=== PATIENT | male | born 1990 | race Two or more races ===

== ENCOUNTER 2017-06-19 14:27 | Inpatient (IN) | payer SELFPAY ==
[2017-06-19] MEDS ORDERED: HYDROmorphONE/DILAUDID 2 MG/ML INJ IVP ONE (14:49)
[2017-06-19] MEDS ORDERED: NS 1,000 ML IV ONE (15:00)
[2017-06-19 15:12] LABS: PLATELET COUNT 224 10^3/uL (150-400)
--- NOTE | 2017-06-19 16:23 | ASMTCMCOM ---
CM Note CM Note Notes: Met w/ pt for SBIRT trigger. Pt admitted s/p a fall skiing today w/ left lower extremity pain. Pt states he does not drink alcohol. Pt states he occasionally uses recreational marijuana. He regularly uses prescription medications not prescribed to him - "Oxycodone and Xanax bars." The pt typically takes three to four 30 mg Oxycodone daily with two Xanax bars daily. 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 Last dose of Suboxone was at 0700 today, he states he took 2 mg. Pt offered resources for drug use. Pt refused stating he doesn't need help. Pt requesting additional pain medications for his leg. Update provided to JOSEE Taylor. CM available for any further issues or concerns. Date Signed: 06/19/2017 04:22 PM Electronically Signed By:Bonnie Duncan RN
[2017-06-19] MEDS ORDERED: MIDAZOLAM 2 MG/2 ML VIAL IVP ONE (16:39)
--- NOTE | 2017-06-19 16:41 | PDGENHP ---
<Pam Harmon - Last Filed: 06/19/17 16:38> History and Physical - Chief Complaint Left leg pain - History of Present Illness 26y/o RHD M presents to the ED c/o LLE pain x few hours. Pt states he was skiing today at [place] today, when he was trying to stop, when he fell and rolled. Pt states his ski got caught and his left leg "bent". Pt was brought down by ski lift mechanic and presented to [facility] ED. Pt states he is in significant pain. Pt has had difficulty with pain control since arrival due to recreational use of oxycodone IR and suboxone. NPO food since 8am, small amounts of water until approximately 2pm. Pt denies any numbness or tingling. History Information - Allergies/Home Medication List Allergies/Adverse Reactions: No Known Allergies Allergy (Unverified 06/19/17 14:34) Home Medications: Suboxone 12 mg-3 mg Sl Film 06/19/17 [Last Taken Unknown] I have personally reviewed and updated: family history, medical history, social history, surgical history Past Medical History: Healthy - Surgical History Reports: no pertinent surgical hx - Family History Negative for: asthma, diabetes type I, diabetes type II, lung disease, vascular disease, CAD, hypertension, stroke - Social History Smoking Status: Current every day smoker Tobacco Use: Cigarettes Alcohol Use: None Drug Use: Marijuana, Other (Oxycodone, Xanax and Suboxone recreationally) Additional social history: Pt is employed and does upholstery Review of Systems Review of Systems: ROS: 10pt was reviewed & negative except for what was stated in HPI & below Physical Exam Physical Exam: Temp Pulse Resp BP Pulse Ox 37 C 67 16 124/80 H 94 06/19/17 14:34 06/19/17 15:42 06/19/17 15:42 06/19/17 15:42 06/19/17 15:42 Constitutional: no apparent distress, appears nourished Eyes: PERRL Ears, Nose, Mouth, Throat: moist mucous membranes, hearing normal, no oral mucosal ulcers Cardiovascular: regular rate and rhythym Peripheral Pulses: 2+: dorsalis-pedis (R), dorsalis-pedis (L) Respiratory: no respiratory distress, clear to auscultation Gastrointestinal: soft, non-tender abdomen Skin: warm, normal color, No abrasion Musculoskeletal: full muscle strength, joint effusion (L knee), joint tenderness (L knee TTP throughout), other (FROM RUE, LUE, able to move toes and ankle well BLEs. Compartments soft.) Neurologic: AAOx3, sensation intact bilaterally, No numbness Psychiatric: interacting appropriately Lymph, Heme, Immunologic: no cervical LAD Lab Data & Imaging Review 06/19/17 15:00 06/19/17 15:00 WBC 22.70 10^3/uL (3.80-9.50) H 06/19/17 15:00 RBC 4.47 10^6/uL (4.40-6.38) 06/19/17 15:00 Hgb 14.4 g/dL (13.7-17.5) 06/19/17 15:00 Hct 40.8 % (40.0-51.0) 06/19/17 15:00 MCV 91.3 fL (81.5-99.8) 06/19/17 15:00 MCH 32.2 pg (27.9-34.1) 06/19/17 15:00 MCHC 35.3 g/dL (32.4-36.7) 06/19/17 15:00 RDW 14.3 % (11.5-15.2) 06/19/17 15:00 Plt Count 224 10^3/uL (150-400) 06/19/17 15:00 MPV 10.9 fL (8.7-11.7) 06/19/17 15:00 Neut % (Auto) 84.2 % (39.3-74.2) H 06/19/17 15:00 Lymph % (Auto) 8.1 % (15.0-45.0) L 06/19/17 15:00 [place] % (Auto) 6.6 % (4.5-13.0) 06/19/17 15:00 Eos % (Auto) 0.2 % (0.6-7.6) L 06/19/17 15:00 Baso % (Auto) 0.3 % (0.3-1.7) 06/19/17 15:00 Nucleat RBC Rel Count 0.0 % (0.0-0.2) 06/19/17 15:00 Absolute Neuts (auto) 19.13 10^3/uL (1.70-6.50) H 06/19/17 15:00 Absolute Lymphs (auto) 1.83 10^3/uL (1.00-3.00) 06/19/17 15:00 Absolute Monos (auto) 1.49 10^3/uL (0.30-0.80) H 06/19/17 15:00 Absolute Eos (auto) 0.05 10^3/uL (0.03-0.40) 06/19/17 15:00 Absolute Basos (auto) 0.07 10^3/uL (0.02-0.10) 06/19/17 15:00 Absolute Nucleated RBC 0.00 10^3/uL (0-0.01) 06/19/17 15:00 Immature Gran % 0.6 % (0.0-1.1) 06/19/17 15:00 Immature Gran # 0.13 10^3/uL (0.00-0.10) H 06/19/17 15:00 Sodium 146 mEq/L (135-145) H 06/19/17 15:00 Potassium 3.4 mEq/L (3.5-5.2) L 06/19/17 15:00 Chloride 115 mEq/L (97-110) H 06/19/17 15:00 Carbon Dioxide 19 mEq/l (22-31) L 06/19/17 15:00 Anion Gap 12 mEq/L (8-16) 06/19/17 15:00 BUN 14 mg/dL (7-23) 06/19/17 15:00 Creatinine 0.6 mg/dL (0.7-1.3) L 06/19/17 15:00 Estimated GFR > 60 06/19/17 15:00 Glucose 75 mg/dL (70-100) 06/19/17 15:00 Calcium 8.7 mg/dL (8.5-10.4) 06/19/17 15:00 Imaging Review: MRI: intra-articular, displace and comminuted fracture proximal L tibia Assessment & Plan Assessment: Intra-articular proximal fibula with comminution and displacement Plan: Discussed with patient risks, benefits and alternatives for surgery today. Written consent was obtained. - Keep NPO - Plan for ex-fix placement LLE today with Dr. Chapman - NWB LUE - Strict elevation, ice post-operatively - SCDs/TEDs on the non-operative leg - VTE chemoprophylaxis post-operative - Please call with any questions or concerns <Michael Chapman - Last Filed: 06/19/17 17:47> History and Physical - History of Present Illness Review of Systems Review of Systems: Physical Exam Physical Exam: Physical Exam Skin intact. +ecchy and edema, no calor or erythema LLE. Comp's soft, no pain with passive stretch or active toe/foot ROM. WWP distally with brisk CR, palp DP. DNVI BLEs. Secondary survey negative for other MSK injury. ABIs: 1.09 LLE. Temp Pulse Resp BP Pulse Ox 37 C 67 16 124/80 H 94 06/19/17 16:27 06/19/17 16:46 06/19/17 16:46 06/19/17 16:46 06/19/17 16:46 Lab Data & Imaging Review 06/19/17 15:00 06/19/17 15:00 WBC 22.70 10^3/uL (3.80-9.50) H 06/19/17 15:00 RBC 4.47 10^6/uL (4.40-6.38) 06/19/17 15:00 Hgb 14.4 g/dL (13.7-17.5) 06/19/17 15:00 Hct 40.8 % (40.0-51.0) 06/19/17 15:00 MCV 91.3 fL (81.5-99.8) 06/19/17 15:00 MCH 32.2 pg (27.9-34.1) 06/19/17 15:00 MCHC 35.3 g/dL (32.4-36.7) 06/19/17 15:00 RDW 14.3 % (11.5-15.2) 06/19/17 15:00 Plt Count 224 10^3/uL (150-400) 06/19/17 15:00 MPV 10.9 fL (8.7-11.7) 06/19/17 15:00 Neut % (Auto) 84.2 % (39.3-74.2) H 06/19/17 15:00 Lymph % (Auto) 8.1 % (15.0-45.0) L 06/19/17 15:00 [place] % (Auto) 6.6 % (4.5-13.0) 06/19/17 15:00 Eos % (Auto) 0.2 % (0.6-7.6) L 06/19/17 15:00 Baso % (Auto) 0.3 % (0.3-1.7) 06/19/17 15:00 Nucleat RBC Rel Count 0.0 % (0.0-0.2) 06/19/17 15:00 Absolute Neuts (auto) 19.13 10^3/uL (1.70-6.50) H 06/19/17 15:00 Absolute Lymphs (auto) 1.83 10^3/uL (1.00-3.00) 06/19/17 15:00 Absolute Monos (auto) 1.49 10^3/uL (0.30-0.80) H 06/19/17 15:00 Absolute Eos (auto) 0.05 10^3/uL (0.03-0.40) 06/19/17 15:00 Absolute Basos (auto) 0.07 10^3/uL (0.02-0.10) 06/19/17 15:00 Absolute Nucleated RBC 0.00 10^3/uL (0-0.01) 06/19/17 15:00 Immature Gran % 0.6 % (0.0-1.1) 06/19/17 15:00 Immature Gran # 0.13 10^3/uL (0.00-0.10) H 06/19/17 15:00 Sodium 146 mEq/L (135-145) H 06/19/17 15:00 Potassium 3.4 mEq/L (3.5-5.2) L 06/19/17 15:00 Chloride 115 mEq/L (97-110) H 06/19/17 15:00 Carbon Dioxide 19 mEq/l (22-31) L 06/19/17 15:00 Anion Gap 12 mEq/L (8-16) 06/19/17 15:00 BUN 14 mg/dL (7-23) 06/19/17 15:00 Creatinine 0.6 mg/dL (0.7-1.3) L 06/19/17 15:00 Estimated GFR > 60 06/19/17 15:00 Glucose 75 mg/dL (70-100) 06/19/17 15:00 Calcium 8.7 mg/dL (8.5-10.4) 06/19/17 15:00 Assessment & Plan Assessment: Closed, displaced and highly comminuted L intra-articular tibial plateau fracture, c/w high energy mechanism. Currently no signs of compartment syndrome , NV deficit (nml exam and ABIGAIL of 1.09), or other significant orthopaedic injury. Plan: Signed and witnessed informed consent obtained and in chart. All questions answered and we will proceed to the OR [facility] for sp ex fix L knee. Pt will need pain medicine consult immediately post-op due to extremely high recreational narcotic/benzo usage (oxycodone 120mg/day and xanax 6mg/day) + suboxone use.
--- NOTE | 2017-06-19 16:46 | PDANEPAE ---
ANE History of Present Illness Ex-Fix L Knee for fracture ANE Past Medical History - Pulmonary History Hx Oxygen in Use at Home: No - Endocrine History Hx Diabetes: No - Neurological & Psychiatric Hx Neurological / Psychiatric History Comment: ocycodone use. etoh use. now on suboxone from the street ANE Review of Systems Review of Systems: - Exercise capacity Exercise capacity: >=4 METS ANE Patient History - Allergies Allergies/Adverse Reactions: No Known Allergies Allergy (Unverified 06/19/17 14:34) - Home Medications Home Medications: Suboxone 12 mg-3 mg Sl Film 06/19/17 [Last Taken Unknown] - NPO status NPO Since - Liquids (Date): 06/19/17 NPO Since - Liquids (Time): 12:00 NPO Since - Solids (Date): 06/19/17 NPO Since - Solids (Time): 09:00 - Anes Hx Anes Hx: no prior problems - Smoking Hx Smoking Status: Current every day smoker Marijuana use: Yes - Alcohol Use Alcohol Use: Occasionally - Family Anes Hx Family Anes Hx: none ANE Labs/Vital Signs - Labs Result Diagrams: 06/19/17 15:00 06/19/17 15:00 - Vital Signs Blood Pressure: 124/80 Heart Rate: 67 Respiratory Rate: 16 O2 Sat (%): 94 Height: 177.8 cm Weight: 70.307 kg ANE Physical Exam - Airway Mallampati Score: Class 1 Mouth exam: normal dental/mouth exam - Pulmonary Pulmonary: no respiratory distress - Cardiovascular Cardiovascular: regular rate and rhythym - ASA Status ASA Status: II ANE Anesthesia Plan Anesthesia Plan: GA w LMA Regional Anesthesia: continuous NB, adductor canal FNB (+/- will discuss with Dr. Chapman)
[2017-06-19] MEDS ORDERED: POLYMYXIN B SULFATE 500,000 UNIT/10 ML SYR IRR ONE (16:49)
[2017-06-19] MEDS ORDERED: BUPIVACAINE 0.5% 10 ML SDV ONE ×2 (16:49→19:30)
[2017-06-19] MEDS ORDERED: BACITRACIN 50,000 UNITS/10 ML SYR IRR ONE (16:50)
[2017-06-19] MEDS ORDERED: ceFAZolin 2 GM/SWFI 2 GM/20 ML SYR IVP ONE (16:51)
[2017-06-19] MEDS ORDERED: MIDAZOLAM 2 MG/2 ML VIAL ONE (17:17)
[2017-06-19] MEDS ORDERED: fentaNYL 250 MCG/5 ML INJ ONE (17:24)
[2017-06-19] MEDS ORDERED: KETAMINE 200 MG/20 ML VIAL ONE (17:25)
[2017-06-19] MEDS ORDERED: PROPOFOL/EMULSION 500 MG/50 ML BOTTLE IV ONE ×3 (17:25→19:36)
[2017-06-19] MEDS ORDERED: ROCURONIUM 50 MG/5 ML VIAL ONE (17:26)
[2017-06-19] MEDS ORDERED: LIDOCAINE HCL 160 MG/4 ML LTA KIT TP ONE (17:32)
[2017-06-19] MEDS ORDERED: PHENYLEPHRINE HCL 100 MCG/ML SYR ONE ×2 (17:47→18:56)
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
[2017-06-19] MEDS ORDERED: DEXAMETHASONE 4 MG/ML VIAL ONE ×2 (18:21)
[2017-06-19] MEDS ORDERED: NEOSTIGMINE METHYLSULFATE 3 MG/3 ML SYR ONE (18:37)
[2017-06-19] MEDS ORDERED: GLYCOPYRROLATE 0.2 MG/1 ML VIAL ONE ×2 (18:37)
[2017-06-19] MEDS ORDERED: IOPAMIDOL (ISOVUE 370) 100 ML BTL IV ONE ×2 (18:59→19:02)
--- NOTE | 2017-06-19 19:21 | POSTOPPROG ---
Post Op Note Date of Operation: 06/19/17 Surgeon: Michael Chapman [employer] Application Developer: None Anesthesiologist: Judson Anesthesia: GET(General Endotracheal) Pre-op Diagnosis: Closed, comminuted, intra-articular left tibial plateau fracture Post-op Diagnosis: Same with possible popliteal vascular injury Indication: Fracture Procedure: Application of left knee spanning ex fix with tibial plateau closed redxn Findings: See op report Inf/Abcess present in the surg proc area at time of surgery?: No EBL: Minimal Complications: None
[2017-06-19] MEDS ORDERED: PHARMACY PAIN CONSULT 1 EA MISC SCH (19:30)
[2017-06-19] MEDS ORDERED: THROMBIN (BOVINE) 20,000 UNIT VIAL TP ONE (19:30)
[2017-06-19] MEDS ORDERED: PROTAMINE SULFATE 50 MG/5 ML VIAL IVP ONE (19:30)
[2017-06-19] MEDS ORDERED: THROMBIN (BOVINE) 20,000 UNIT SPRAY TP ONE (19:30)
[2017-06-19] MEDS ORDERED: HYDROmorphONE/DILAUDID 6 MG/30 ML PCA IV PRN (20:40)
[2017-06-19] MEDS ORDERED: NALOXONE HCL 0.4 MG/ML INJ IVP PRN (20:40)
[2017-06-19] MEDS ORDERED: METOCLOPRAMIDE 10 MG/2 ML VIAL IVP PRN (20:42)
[2017-06-19] MEDS ORDERED: MAGNESIUM HYDROXIDE 30 ML UDCUP PO PRN (20:42)
[2017-06-19] MEDS ORDERED: CYCLOBENZAPRINE 10 MG TAB PO PRN (20:42)
[2017-06-19] MEDS ORDERED: POLYETHYLENE GLYCOL 3350 17 GM PKT PO PRN (20:42)
[2017-06-19] MEDS ORDERED: BISACODYL 10 MG SUPP PR PRN (20:42)
[2017-06-19] MEDS ORDERED: ONDANSETRON DISINTEGRATING 4 MG TAB PO PRN (20:42)
[2017-06-19] MEDS ORDERED: PROMETHAZINE HCL 25 MG SUPPR PR PRN (20:42)
[2017-06-19] MEDS ORDERED: ONDANSETRON 4 MG/2 ML VIAL IVP PRN (20:42)
[2017-06-19] MEDS ORDERED: diphenhydrAMINE 25 MG CAP PO PRN (20:42)
[2017-06-19] MEDS ORDERED: TEMAZEPAM 15 MG CAP PO PRN (20:42)
[2017-06-19] MEDS ORDERED: PROMETHAZINE HCL 25 MG/ML INJ IVP PRN (20:42)
[2017-06-19] MEDS ORDERED: DIPHENOXYLATE/ATROPINE LOMOTIL 1 TAB PO PRN (20:42)
[2017-06-19] MEDS ORDERED: LACTULOSE 20 GM/30 ML UDCUP PO PRN (20:42)
[2017-06-19] MEDS ORDERED: DIAZEPAM 5 MG/ML 1 ML SYR IVP PRN (21:15)
[2017-06-19] MEDS ORDERED: fentaNYL 100 MCG/2 ML INJ IVP PRN (21:15)
[2017-06-19] MEDS ORDERED: MEPERIDINE 25 MG/ML SYR IVP PRN (21:15)
--- NOTE | 2017-06-19 21:18 | POSTANESTH ---
Post Anesthetic Evaluation Cardiovascular Status: Normal, Stable Respiratory Status: Normal, Stable Level of Consciousness/Mental Status: Mildly Sleepy, Arousable, Moderately Sleepy Pain Control: Adequate, Prn Tx Ordered Nausea/Vomiting Control: Adequate, Prn Tx Ordered Complications Possibly Related to Anesthesia: None Noted
[2017-06-19] MEDS: SENNOSIDES/DOCUSATE SODIUM TAB PO SCH (21:33)
[2017-06-19] MEDS: LR 1,000 ML IV SCH (21:54)
[2017-06-19] MEDS: oxyCODONE IR 5 MG TAB PO PRN (22:24)
[2017-06-19] MEDS: FAMOTIDINE 20 MG TAB PO SCH (22:45)
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
--- NOTE | 2017-06-19 22:56 | POSTOPPROG ---
Post Op Note Date of Operation: 06/19/17 Surgeon: Ayden Powell Anesthesiologist: MARYURI Anesthesia: GET(General Endotracheal) Pre-op Diagnosis: LEFT FOOT ISCHEMIA Post-op Diagnosis: COMPARTMENT SYNDROME Indication: ISCHEMIA Procedure: CRITICAL CARE AND TRANSPORTATION THE PATIENT TO CT ANGIOGRAPHY/4 COMPARTMEN Findings: MORMONISM OF PULSES Inf/Abcess present in the surg proc area at time of surgery?: No Depth: Deep Incisional (Fascial) EBL: 50-100 Complications: NONE
[2017-06-20] MEDS: ACETAMINOPHEN 325 MG TAB PO SCH ×2 (00:09→06:13)
[2017-06-20] MEDS: DEXMEDETOMIDINE HCL 400 MCG in NS 100 ML IV SCH ×2 (04:06→22:29)
--- NOTE | 2017-06-20 05:24 | GOP ---
[f rep st] OPERATIVE REPORT DATE OF OPERATION: 06/19/2017 SURGEON: Michael Chapman MD WOOD TILE INSTALLER: None. ANESTHESIA: General. ANESTHESIOLOGIST: Roly Roper MD. PREOPERATIVE DIAGNOSIS: Closed, comminuted, intra-articular bicondylar left tibial plateau fracture. POSTOPERATIVE DIAGNOSIS: Closed, comminuted, intra-articular, bicondylar left tibial plateau fracture. PROCEDURE PERFORMED: Application of left knee spanning external fixator for tibial plateau fracture with large C-arm and closed reduction. FINDINGS: Pre-op the patient refused to move out of the right lateral decubitus () position due to pain. During intubation and prep by the OR staff, he was taken out of the lateral decubitus/ position, and laid supine on the gurney for [facility]. With this change of position, the LLE became cool, cyanotic and pulses were no longer palpable. Preop nonsterile Doppler was negative for any dopplerable pulses. The patient underwent spanning external fixation with good bone quality and fixation. After the reduction was achieved and alignment was restored, pulses were still not palpable. Doppler was then performed in a sterile manner and the posterior tibial pulse was dopplerable and monophasic, however, dorsalis pedis pulse was not palpable or dopplerable. The patient's skin tone did improve, but due to the findings a vascular consult was urgently obtained with Dr. Powell, who presented to the OR rapidly, scrubbed in, and agreed that the patient needed to be treated rapidly while intubated with a CT angio for definitive vascular imaging. See his dictation for pertinent information. SPECIMENS: None. INDICATIONS: This is a 26-year-old male who was skiing at [facility] today and suffered a fall, twisting his left knee and leg. The patient had obvious severe pain and inability to bear weight. He was transferred to the base of [facility] by skiagrapher and then presented to the [facility] ER by ambulance. Patient's past medical history is complicated by extreme polysubstance abuse and addiction, including oxycodone 120mg/day or more, alprazolam 6mg/day, and use of Suboxone, usually 2mg/day. He has been self- treating his addiction and notes he is not under the care of any physician. He obtains all these drugs from the street. Preoperatively, he denied any numbness or tingling in either lower extremity. The patient was warm and well- perfused on exam with brisk capillary refill and palpable dorsalis pedis pulse. He is able to wiggle all toes with flexion and extension, as well as dorsiflex and plantar flex the left foot. No pain with passive stretch. Compartments were soft. ABIs were 1.09 for the left lower extremity prior to surgery in the ER. The patient was consented after a discussion of the risks, benefits, and alternatives by me. Signed witnessed informed consent was placed in his chart. Please see history and physical for additional information. The patient was taken emergently to the operating room for provisional fixation of this high energy injury. DESCRIPTION OF PROCEDURE: The patient was identified in the preoperative holding area and his left knee was signed as the operative site. The patient was confirmed in right lower extremity CHARLI hose and SCDs. He was treated with 2 g IV prophylactic cefazolin per protocol. He was taken back to the operating room, placed supine and intubated on his gurney, a aguilera was placed, and then placed supine on the OR table. Due to his clinical findings and the high- energy nature of this patient's trauma, there was significant risk for neuro- vascular injury and compartment syndrome. As a result, I had the Doppler US and [employer] compartment pressure measuring devices brought to the OR and readied for use. Throughout his prep for this emergent surgery, great care was taken to protect the leg with hands placed both above and below the fracture site to limit any motion or potential neurovascular damage at the unstable fracture site. Prior to prep/drape, I attempted to doppler his extremity, and no pulses were detectable. Please see the findings for additional information. The left lower extremity was wrapped at the proximal thigh with cast padding and nonsterile tourniquet and then carefully and rapidly prepped and draped in the usual sterile manner. Large C-arm was used sterile for imaging during the procedure. A vlad-shaped multiplanar external fixator was applied with 2 anterolateral half-pins within the femoral shaft and 2 distal tibial shaft half-pins. The tibial pins were placed far distal to allow optimal distance from future, definitive fixation with plates/screws. In all cases, the pin sites were marked and approximately 1 cm incisions were made through the full-thickness of the dermis with a 15 blade. A hemostat was then used to spread down through subcutaneous fat, fascia, muscle down to bone. In each case, the trocar and cannula were advanced down to bone to the appropriate cortical position. In all cases, powered drilling was used to traverse the near cortex and then T- handle advancing of the half pin was performed by me to confirm that the pin was placed to the appropriate depth, with far cortex engagement. Finalized images with the C-arm confirmed the appropriate depth and placement of all pins. Excellent fixation was confirmed at all pins. Once these were in place, the frame was created with the standard Cheryl Christopher II equipment and technique. A multiplanar vlad-shaped construct was created. I performed a closed reduction with some pressure applied posteriorly at the tibial metaphysis via a well-padded bump, in order to achieve reduction. Traction over the bump and rotation achieved appropriate alignment and length at the fracture site. Once this was completed, the technical coordinator took over to maintain retraction and limb position in that position and then I carefully tightened down all the screws. Once the frame was formally set and tightened, finalized images were again taken and then printed to confirm appropriate reduction of the fracture site. Once this was completed, the wounds were copiously irrigated and cleansed with wet and dry sponges. Standard postoperative surgical dressings were applied. Please note, Dr. Powell presented to the OR prior to my completion of the surgery and he performed Doppler exam as did I and we both agreed we could only detect a weak posterior tibial pulse. The patient did have fullness in the popliteal fossa. He was kept intubated and urgently taken to CT angio. Please see Dr. Powell's notes for additional information. TOURNIQUET TIME: None. DRAINS: None. IMPLANTS: Cheryl Christopher II large external fixator frame with 2 half pins in the femur and 2 half pins in the tibia. COMPLICATIONS: None. DISPOSITION: The patient was kept intubated and brought to CT angio as listed above under the care of Dr. Powell for potential vascular injury. /[id number]/MODL MTDD
[2017-06-20] MEDS: LR 1,000 ML IV SCH (07:06)
[2017-06-20] MEDS: SENNOSIDES/DOCUSATE SODIUM TAB PO SCH ×2 (07:38→20:44)
[2017-06-20] MEDS: oxyCODONE IR 5 MG TAB PO PRN (07:38)
[2017-06-20] MEDS: FAMOTIDINE 20 MG TAB PO SCH (07:39)
[2017-06-20] MEDS ORDERED: ONDANSETRON 4 MG/2 ML VIAL IVP PRN (08:34)
--- NOTE | 2017-06-20 08:45 | TRAUMAPNT ---
Trauma Tertiary Progress Note New Findings: No new findings. States that he smokes 1 pack q 3 days Assessment/Plan: POD/PAD#1 06/20/2017 Assessment: Bleeding - Called by nursing for bleeding from fasciotomy site. Dressing changed and no focal bleeding site noted. Foot warm with good pulse. Smoker - Will continue IS for pulmonary toilet Pain control - on Precedex, Dilaudid ELECTRONIC TRAIN CONTROL TECHNICIAN, Tylenol, Oxy and Oxi-IR Plan: Will place wound vac today No nicotine Pain - Tylenol increased to 1000mg q 8 h, Toradol added, Oxy DC'd. Hope to transition to oral Dilaudid from Dilaudid ELECTRONIC TRAIN CONTROL TECHNICIAN. Pain goals discussed with patient. Subjective: "I hurt everywhere" but admits that his pain is only in left leg. Objective: Vital Signs Temp Pulse Resp BP Pulse Ox 36.5 C 58 L 14 98/48 L 98 06/19/17 21:05 06/20/17 06:00 06/20/17 06:00 06/20/17 06:00 06/20/17 06:00 Laboratory Results 06/20/17 06:26 06/19/17 06/20/17 06/21/17 04:59 05:59 05:59 Intake Total Output Total Balance Physical Exam - Physical Exam General Appearance: WD/WN, alert, moderate distress EENT: PERRL/EOMI, normal ENT inspection, pharynx normal, TMs normal Neck: non-tender, full range of motion, supple, normal inspection Respiratory: chest non-tender, lungs clear, normal breath sounds Cardiac/Chest: regular rate, rhythm Peripheral Pulses: 4+: dorsalis-pedis (L) (Foot warm) Abdomen: non-tender, soft, other (hypoactive bowel sounds) Male Genitalia: deferred Rectal: deferred Skin: normal color, warm/dry Extremities: other (Fasciotomy - clean wound, no obvious bleeding sites) Neuro/Psych: alert, normal mood/affect, oriented x 3 Time Spent w/Patient (minutes): 45
[2017-06-20] MEDS ORDERED: PROTOCOL POTASSIUM 1 DOSE MISC PRN (10:14)
[2017-06-20] MEDS ORDERED: POTASSIUM CL 10 MEQ TAB PO ONE ×2 (10:31→19:45)
[2017-06-20] MEDS: KETOROLAC 30 MG/1 ML SDV IVP SCH ×2 (11:34→17:08)
--- NOTE | 2017-06-20 11:38 | SOAPPROG ---
SOAP Progress Note Assessment/Plan: Assessment: POSTOP DAY 1: GREAT PULSES/ NORMAL FOOT FUNCTION/FASCIA ME SITES CLEAN Plan: CHANGE TO WOUND VAC ON FASCIOTOMY SITE 06/20/17 11:37 Objective: Vital Signs Temp Pulse Resp BP Pulse Ox 36.5 C 61 14 99/64 L 100 06/20/17 10:00 06/20/17 10:00 06/20/17 10:00 06/20/17 10:00 06/20/17 10:00 Laboratory Results 06/20/17 06:26 06/19/17 06/20/17 06/21/17 04:59 05:59 05:59 Intake Total Output Total Balance ICD10 Worksheet Patient Problems: Problems Problem Status Onset Tibia/fibula fracture Acute
--- NOTE | 2017-06-20 12:47 | SOAPPROG ---
Addendum entered and electronically signed by Pam Harmon PAC 06/20/17 12:49 : 40mg Enoxaparin daily Original Note: <Pam Harmon - Last Filed: 06/20/17 12:43> SOAP Progress Note Assessment/Plan: Assessment/Plan: L comminuted, intra-articular tibial plateau fracture and compartment syndrome s/p ex-fix placement and fasciotomies LLE POD#1 - NWB LLE - Elevation and ice for pain and swelling - Continue pain management, encourage PO - SCDs/TEDs for mechanical prophylaxis - 40mg Enoxaparin BID for VTE chemoprophylaxis - Continue IV antibiotic prophylaxis for 24 hours post-operatively - Call with any questions or concerns 06/20/17 12:43 Subjective: Pt states pain has been a /10. He denies any fever, chills, chest pain, SOB, abdominal pain, N/V/D, numbness and tingling. Objective: Vital Signs Temp Pulse Resp BP Pulse Ox 36.5 C 71 20 114/61 100 06/20/17 10:00 06/20/17 12:00 06/20/17 12:00 06/20/17 12:00 06/20/17 12:00 Laboratory Results 06/20/17 06:26 06/19/17 06/20/17 06/21/17 04:59 05:59 05:59 Intake Total Output Total Balance Physical Exam - Physical Exam General Appearance: alert, no apparent distress Peripheral Pulses: 2+: dorsalis-pedis (R), dorsalis-pedis (L) Skin: other (Dressings intact LLE, small amounts of blood) Extremities: normal capillary refill, swelling, other (Sensation intact throughout, able to wiggle L toes well.) Neuro/Psych: no motor/sensory deficits, alert, normal mood/affect ICD10 Worksheet Patient Problems: Problems Problem Status Onset Tibia/fibula fracture Acute <Michael Chapman - Last Filed: 06/20/17 13:57> SOAP Progress Note Assessment/Plan: Assessment: Doing well POD 1 s/p spanning ex fix L tibial plateau fx by me, and fasciotomies by Dr Powell, after confirming no vascular injury. Plan: Clarification to my PA's notes above - plan is enoxaparin 40mg SQ daily and CHARLI/SCD RLE. Continue proph IV abx while fasciotomy sites are open; agree with Dr Powell' plan to proceed with vacs. Continue ICU stay while requiring heavy analgesia due to his extreme tolerance. PT/OT for ambulation, transfers, ADLs. Pin site care with 1/2 H2O2/saline daily. Tighten all nuts on frame tomorrow. Otherwise, agree with above plan. I spent time today discussing case with father and family. They live in [place] and would prefer care closer to home. In addition, given his PSA and addiction , he would be best treated at [facility] with in-pt psych/addiction services and level I trauma services available to proceed with his definitive fixation and ORIF. Any time after his has stabilized, we can proceed with this transfer of care. The family and pt hope to proceed with the above plan. I will call orthosurg there to facilitate, once I've had a chance to discuss with Dr Powell. 06/20/17 13:49 Objective: Vital Signs Temp Pulse Resp BP Pulse Ox 36.5 C 71 20 114/61 100 06/20/17 10:00 06/20/17 12:00 06/20/17 12:00 06/20/17 12:00 06/20/17 12:00
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
[2017-06-20] MEDS: LORazepam 1 MG TAB PO PRN (14:41)
[2017-06-20] MEDS: ENOXAPARIN 40 MG/0.4 ML SYR SC SCH (14:41)
[2017-06-20] MEDS: ACETAMINOPHEN 500 MG TAB PO SCH ×2 (14:41→21:39)
[2017-06-20] MEDS: HYDROmorphONE/DILAUDID 6 MG/30 ML PCA IV PRN ×2 (14:48→21:50)
--- NOTE | 2017-06-20 14:50 | GCON ---
[f rep st] CONSULTATION CRITICAL CARE CONSULTATION DATE OF CONSULTATION: 06/20/2017 REASON FOR CONSULTATION: Intensive care unit evaluation and medical management following left lower extremity fracture. HISTORY: This patient is a 26-year-old. He was skiing at [email or web address] yesterday, fell, and broke his leg. He was brought to the emergency department, where a proximal tibia fibular fracture was found. He was taken to the operating room for fixation and reduction/repair. The procedure was complicated by eventual loss of pulses in the left lower extremity. He was evaluated by Dr. Powell, found to have a compartment syndrome, and had fasciotomies performed on both sides of the left lower extremity, with good return of pulses afterwards. The patient has no history of medical problems. He has used drugs for a number of years, including d aily oxycodone, Xanax, and Suboxone. He states that over the last week he has been relatively clean. He also uses marijuana and smokes about a quarter pack of cigarettes per day. Following his fasciotomy, he was returned to the intensive care unit on Precedex and a Dilaudid GRIEF COUNSELOR. PAST MEDICAL HISTORY: Negative except for drug use as outlined above. SOCIAL HISTORY: He lives in [place] with his mother. Works in the [employer] business. Alcohol is denied. Drugs are as outlined in the HPI and include opiates, benzodiazepines, and marijuana. Toba accounts clerk is positive. FAMILY HISTORY: Noncontributory. REVIEW OF SYSTEMS: A 10-point review of systems is negative except as noted in the HPI. PHYSICAL EXAMINATION: GENERAL: Reveals a gentleman who is in bed status post left lower extremity s urgeries from last night. A fixation device is in place. Calf is wrapped with gauze. There appears to be no significant ongoing bleeding. HEENT: Unremarkable for lymphadenopathy or thyromegaly. Pu pils are small, equal. Mucous membranes are moist. There is no jugular venous distention or lymphad enopathy. CHEST: Clear bilaterally. There is no congestion, no wheezing. HEART: Regular in rate and rhythm. There are no significant murmurs, no gallops. ABDOMEN: Soft. There is no tenderness. Bowel sounds are diminished but present. GENITOURINARY: A Benson catheter is in place. There is go od urine output. EXTREMITIES: The left lower extremity is postoperative as described above. The ri [facility] lower extremity has SCDs in place. There is no edema, no tenderness, no signs of trauma. NEUROL OGIC: Examination is intact. Mentation is within normal limits. LABORATORY: White blood cell count is 22,000, hematocrit 31.7, down from 40 on admission. Platelets of 224,000. Sodium was 146, potassium 3.4, BUN 14, with a creatinine 0.6 on admission. Glucose and calcium were normal. ASSESSMENT: 1. Status post tibia/fibula fracture on the left, with fixation and repair. 2. Left lower extremity fasciotomy secondary to compartment syndrome. 3. Acute blood-loss anemia. Hematocrit will be followed. 4. History of oral drug use, including narcotics and benzodiazepines. No history of alcohol abuse. He is on a Dilaudid GRIEF COUNSELOR as well as Precedex as needed. This seems to be adequately controlling his pain. There are no signs of opioid withdrawal with the Dilaudid GRIEF COUNSELOR. Ativan can be given low-dose o n a p.r.n. basis if needed. 5. Metabolic hypokalemia. Replacement protocol will be ordered. PLAN AND RECOMMENDATIONS: Patient will be kept in the intensive care unit. Appropriate pain managem ent will be maintained. Precedex can be used if needed, but we will try to taper and discontinue thi s when possible. Pulses in the left lower extremity will be followed. Cefazolin will be continued. Enoxaparin will be started for DVT prophylaxis. He will be able to eat. No GI prophylaxis is neede d. Hematocrit will be followed, along with laboratory. Further plans and recommendations will be made based on his progress over the next 12 to 24 hours. /[id number]/MODL
[2017-06-20] MEDS ORDERED: HYDROmorphONE/DILAUDID 2 MG/ML INJ IVP ONE (15:15)
--- NOTE | 2017-06-20 15:47 | WOCRNPDOC ---
WOCRN Advanced Assessment Note - Skin Integrity Problem, Advanced Assess Left Lower Leg Surgical Wound/Incision Dressing Type: Gauze, Kerlix Dressing Description: Intact, Saturated Exudate Amount: Moderate Exudate Color: Red Exudate Characteristic(s): Bloody Integumentary Issue Intervention: Dressing Applied Trisha Wound Tissue: Intact Trisha Wound Swelling: Moderate Wound Bed Color: Red, Yellow Wound Bed Constitution: Muscle (90%), Subcutaneous Fat (10% at wound margins) Wound Edges: Well Defined Site Measurement - Head-to-Toe Length X Width X Depth (cm): lateral: 18.5x5.5x1. medial: 23x7.5x3 Skin Integrity Problem Comment: Wounds cleaned with NS and gauze. Trisha-wound tissue draped in the typical fashion. Contact layer applied to base of each wound, in contact with exposed muscle. One piece black, block foam cut to fill each wound bed. Patient's anterior munoz draped and a bridge created to connect the two wounds. Suction applied at -125mm Hg, low continuous with good seal achieved. JOSEE Lemus in room and assisting with dressing. Patient tolerated the procedure OK but with significant pain, particularly when lifting the leg via external fixator. Wound care will round again on Wed for vac change.
[2017-06-21] MEDS: KETOROLAC 30 MG/1 ML SDV IVP SCH ×4 (00:12→18:27)
[2017-06-21] MEDS: HYDROmorphONE/DILAUDID 6 MG/30 ML PCA IV PRN ×4 (04:39→21:01)
[2017-06-21 05:21] LABS: PLATELET COUNT 147 10^3/uL (150-400)
[2017-06-21] MEDS: ACETAMINOPHEN 500 MG TAB PO SCH ×3 (05:46→21:41)
--- NOTE | 2017-06-21 09:09 | SOAPPROG ---
SOAP Progress Note Assessment/Plan: Assessment: POSTOP DAY 1: GREAT PULSES/ NORMAL FOOT FUNCTION/FASCIA ME SITES CLEAN Plan: CHANGE TO WOUND VAC ON FASCIOTOMY SITE 06/20/17 11:37 06/21/17 09:07 WOUNDS OKAY WITH VAC IN PLACE/EXCELLENT PULSES/DIFFICULT TO MOVE HIS LEGS SECONDARY TO PAIN BUT CAN DEFINITELY DORSIFLEX HIS FOOT AND TOES/AFEBRILE/ HEMATOCRIT 29/MAJOR ISSUES PAIN CONTROL Objective: Vital Signs Temp Pulse Resp BP Pulse Ox 37.1 C 63 16 91/52 L 97 06/21/17 08:10 06/21/17 08:10 06/21/17 08:10 06/21/17 08:10 06/21/17 08:10 Laboratory Results 06/21/17 04:48 06/21/17 04:48 06/20/17 06/21/17 06/22/17 05:59 05:59 05:59 Intake Total 2575 Output Total 1525 Balance 1050 ICD10 Worksheet Patient Problems: Problems Problem Status Onset Tibia/fibula fracture Acute
--- NOTE | 2017-06-21 09:47 | PDINTPN ---
Group Insurance Specialist Progress Note Assessment/Plan: Assessment/Plan: * Status post tib-fib fracture * Compartment syndrome- status post fasciotomy * Pain-well controlled with Dilaudid ADJUSTMENT SUPERVISOR * History of polysubstance drug abuse-this includes narcotics and benzodiazepines * Anemia-hemoglobin hematocrit stable * Disposition-patient wishes to be transferred to the hospital in [place] Subjective: Resting comfortably. Pain well controlled. Objective: Vital Signs Temp Pulse Resp BP Pulse Ox 37.1 C 63 16 91/52 L 97 06/21/17 08:10 06/21/17 08:10 06/21/17 08:10 06/21/17 08:10 06/21/17 08:10 Laboratory Results 06/21/17 04:48 06/21/17 04:48 06/20/17 06/21/17 06/22/17 05:59 05:59 05:59 Intake Total 2575 Output Total 1525 Balance 1050 - Time Spent With Patient Time Spent With Patient: 25 min of time spent with patient, over 1/2 involved with coordination care or counseling Physical Exam - Physical Exam General Appearance: alert, no apparent distress EENT: PERRL/EOMI, normal ENT inspection Neck: non-tender, full range of motion, supple, normal inspection Respiratory: chest non-tender, lungs clear, normal breath sounds Cardiac/Chest: normal peripheral pulses, regular rate, rhythm Abdomen: normal bowel sounds, non-tender, soft Male Genitalia: deferred Rectal: deferred Skin: normal color, warm/dry Neuro/Psych: no motor/sensory deficits, alert, normal mood/affect, oriented x 3 ICD10 Worksheet Patient Problems: Problems Problem Status Onset Tibia/fibula fracture Acute
[2017-06-21] MEDS: HYDROCODONE/APAP 10/325 TAB PO PRN ×3 (10:59→21:42)
[2017-06-21] MEDS: SENNOSIDES/DOCUSATE SODIUM TAB PO SCH ×2 (10:59→21:43)
[2017-06-21] MEDS: ENOXAPARIN 40 MG/0.4 ML SYR SC SCH (10:59)
--- NOTE | 2017-06-21 13:05 | SOAPPROG ---
SOAP Progress Note Assessment/Plan: Assessment: POD 2 s/p spanning ex fix L tibial plateau fx by me, and fasciotomies by Dr Powell. Improving condition and analgesia. Plan: Continue post-op plan with enoxaparin 40mg SQ daily and CHARLI/SCD RLE. Continue proph IV abx while fasciotomy sites are open; vac care per Dr Powell and wound care. PT/OT for ambulation, transfers, ADLs. Strict NWB LLE. Pin site care with 1/2 H2O2/saline daily. Tighten all nuts on frame today. After discussing with trauma-ortho colleagues in [place], they advise transfer of care to [facility] for both definitive ORIF and addiction services. I've d/ w Joe Ramirez MD at [facility], who has accepted the patient. Christopher can be transferred during this acute care stay or as an outpatient. Family and patient prefer to have their care in [place], near where they live, and where they can get addiction services. They may still elect to proceed with care at [facility]. 06/21/17 13:01 Subjective: Pain better controlled. Denies any numb/tingling. Moved to floor from ICU. Objective: Vital Signs Temp Pulse Resp BP Pulse Ox 37.1 C 85 16 110/60 95 06/21/17 11:56 06/21/17 11:56 06/21/17 11:56 06/21/17 11:56 06/21/17 11:56 Laboratory Results 06/21/17 04:48 06/21/17 04:48 06/20/17 06/21/17 06/22/17 05:59 05:59 05:59 Intake Total 2575 Output Total 1525 Balance [address] with good suction. Comp's soft. DNVI with palp DP/PT, WWP w/ brisk CR. Able to actively DF/PF ankle/toes. LT sens intact throughout. Pin sites clear, dsg missing from tibial pins, o/w frame in good condition. ICD10 Worksheet Patient Problems: Problems Problem Status Onset Tibia/fibula fracture Acute
[2017-06-21] MEDS ORDERED: HYDROGEN PEROXIDE 473 ML BOTTLE TP PRN (15:01)
--- NOTE | 2017-06-21 19:01 | ASMTCMCOM ---
CM Note CM Note Notes: Reviewed chart and discussed w/ HARLAN Montoya for Dr Chapman. Pt will be transferred to [facility] for pain mangement and further surgical services as well as addiction services as pt has hx of drug addicition. Initially pt was going to be transferred to [facility] ([phone]) but after talking w/family they are requesting [facility] as this is much closer to their home. Pt has parents and sister who are involved and supportive. Dr Chapman was able to reach physician at [facility], Dr Koenig, who is able to accept pt. However, after speaking w/JOSEE Rivera who deals w/pt transfers, the AOC at [facility] still needs to accept and they will not be back in til tomorrow AM and will review case. Pt is uninsured and has been screened for [facility] and is apparently overincome to qualify. Notified financial today to come and speak w/pt and sister which they did. Discussed transportation w/pt and sister and mother, gave [facility] prepay cost which is $545 to [facility] and they are able to pay this. [facility] # given and sister will call tomorrow to prepay. Transport is set up for 11 AM tomorrow if we receive acceptance from [facility] before this. CM should callJOSEE Rivera at [facility], [phone] early AM to follow up. Emtandrey at front of chart. Discussed w/JOSEE Lara. Date Signed: 06/21/2017 07:00 PM Electronically Signed By:Harriet Thornton RN
[2017-06-21] MEDS: LORazepam 1 MG TAB PO PRN (21:42)
[2017-06-22] MEDS: KETOROLAC 30 MG/1 ML SDV IVP SCH ×4 (00:06→17:19)
[2017-06-22] MEDS: HYDROCODONE/APAP 10/325 TAB PO PRN ×3 (04:48→17:19)
[2017-06-22] MEDS: ACETAMINOPHEN 500 MG TAB PO SCH ×2 (04:54→12:16)
--- NOTE | 2017-06-22 07:37 | SOAPPROG ---
SOAP Progress Note Assessment/Plan: Assessment: POD#3 s/p spanning ex fix of left tibial plateau fracture by Dr. Chapman and fasciotomies by Dr. Powell: pain improving, no signs of infection. Plan: -Continue prophylactic abx while fasciotomy wound sites are open. Wound vac currently still in place: continue management of wound vac per Dr. Powell and wound care. Appreciate their reccs. -DVT prophylaxis: Enoxaparin 40mg SQ daily, CHARLI russo, SCD on right leg, IS. -Strict NWB to left leg. -Pin site care with 1/2 H2O2 and 1/2 saline daily. Wound sites look good. -Ok to transfer to [facility] for continued care for definitive ORIF and addiction/mental health services. [facility] states they are willing to transfer care; patient and his family are happy with this decision since they live in [place] and would prefer to have easier access to the patient and the F/ U care for addiction services in [place]. -Questions/concerns call our office at [phone]. Patient discussed/agreed upon with Dr. Chapman. 06/22/17 07:32 06/22/17 07:41 Subjective: s/p POD #3 spanning ex-fix and fasciotomy: Pain well controlled this am. Has passed flatus and had a BM. He denies any worsening pain, abnormal numbness/tingling, fever, chills, NVD, change in heat/ color around extremity or of wound sites, worsening swelling, change in distal ROM of left extremity, cough, congestion, chest pain, SOB, dyspnea. Has been compliant in NWB and use of IS. Objective: Vital Signs Temp Pulse Resp BP Pulse Ox 37.0 C 58 L 16 96/56 L 94 06/22/17 07:30 06/22/17 07:30 06/22/17 07:30 06/22/17 07:30 06/22/17 07:30 Laboratory Results 06/21/17 04:48 06/22/17 04:28 06/21/17 06/22/17 06/23/17 05:59 05:59 05:59 Intake Total 2575 500 Output Total 1525 575 Balance 1050 -75 Alert and oriented, able to respond appropriately to questions. NAD. JESSE, EOMs intact, moist buccal mucosa. Non-labored breathing, no diaphoresis. RRR. M/S: Left leg with spanning ex-fix and wound vac. Wound sites/pin sites without abnormal bleeding/oozing/discharge, foul odor, change in heat/color. Compartments soft and brisk cap refill noted b/l in his lower extremities. NVI b /l in lower extremities. Calves soft/supple and NTTP b/l. Hardware in good position and screws have been tightened. Gross sensation intact b/l with no focal deficits. Passive dorsflexion/plantarflexion of large toe produces no reproducible pain in lower compartments. - Pending Discharge Pending Discharge Within 24 Hours: Yes Pending Discharge Date: 06/23/17 Pending Discharge Time: 11:00 ICD10 Worksheet Patient Problems: Problems Problem Status Onset Tibia/fibula fracture Acute
[2017-06-22] MEDS: HYDROmorphONE/DILAUDID 6 MG/30 ML PCA IV PRN ×2 (07:46→15:15)
[2017-06-22] MEDS: ENOXAPARIN 40 MG/0.4 ML SYR SC SCH (09:45)
[2017-06-22] MEDS: SENNOSIDES/DOCUSATE SODIUM TAB PO SCH (09:45)
[2017-06-22 11:57] VITALS: TEMP 98.4
[2017-06-22 15:17] VITALS: BP 111/58; PULSE 73; RESP 20; O2SAT 95
[2017-06-22] MEDS ORDERED: PHARMACY PAIN CONSULT 1 EA MISC SCH (15:30)
--- NOTE | 2017-06-22 17:52 | GDS ---
[f rep st] DISCHARGE SUMMARY ADMITTING DIAGNOSIS: Traumatic injuries following skiing accident. SECONDARY DIAGNOSES: 1. Complex tibial plateau fracture. 2. Complex fibular fracture. 3. Compartment syndrome. 4. Acute blood loss anemia. 5. Substance abuse including oxycodone, Xanax, and Suboxone. REASON FOR ADMISSION: The patient is a 26-year-old man who fell while skiing at [place]. He was velazquez sported by EMS to the emergency room. In the ER, his imaging workup revealed complex proximal tibial fracture with intra-articular involvement and posterior displacement of the distal aspect, also comp cornell fracture of the proximal fibular head with angulation. He was admitted for surgical intervention , pain control, and observation. HOSPITAL COURSE: He was taken emergently to the operating room by Dr. Chapman for external fixation of a left tibial plateau with closed reduction. At the time of surgery, he was found to have a poss ible popliteal vascular injury and decreased pulses. He was taken from the operating room directly t o imaging for a CT angiogram. This revealed vasospasm versus external compression of the anterior ti bial, posterior tibial and peroneal arteries in the mid to distal calf. He was evaluated by Dr. Diana Powell, who determined this to be compartment syndrome and performed fasciotomy of the medial and lateral lower leg. Of note, the patient reported recreational oxycodone and Xanax use. On admission , he states that he takes Suboxone without a prescription to help with his Oxy addiction. He is not currently enrolled in any addiction services and is willing to pursue addiction therapy. He had a wo und VAC applied to the fasciotomy site on postoperative day #1. Postop instructions include nonweigh tbearing of the left lower extremity, pin site care with half hydrogen peroxide and half saline daily . He received prophylactic Lovenox as well as prophylactic IV antibiotics for 24 hours following leo yu. Postoperative day #3, the patient desires transfer to [facility], which is closer to his home and family. He also is willing to pursue addiction services, which are more readily available to him. He will also require definitive ORIF of the left lower extremity. The patient was accepted by Dr. Joe Ramirez at [facility] and the case was discussed with Dr. Chapman. DISCHARGE MEDICATIONS: Resume his inpatient medications. Please see EMR for further detail. DISCHARGE INSTRUCTIONS AND FOLLOWUP: Care will be assumed by the providers at [facility] . Wound VAC change Wednesday, Wednesday, Wednesday. Pin site care as above. Strict nonweightbearing left lower extremity. He is being transferred in stable condition. /[id number]/MODL
--- NOTE | 2017-06-22 18:11 | SOAPPROG ---
SOAP Progress Note Assessment/Plan: Assessment/Plan: 26yo M s/p skiing accident with tibial plateau fx and fib fx s/ p ex fix. Substance abuse (oxy, xanax, suboxone) ABLA - H/H stable PT/OT - NWB LLE Pin care per ortho Wound vac change MWF Pain controlled. If does not transfer, then need pharmacy consult for pain management Plan is to DC to [facility] or [facility] today. Awaiting finalization from case management Seen c Dr. Deluca. S: no complaints this am other than pain. wants to transfer to [place] to be closer to home and family O: laying in bed, comfortable, NAD No increased WOB, CTAB RRR +BS, abd soft, nt, nd LLE ex fix intact Active dorsiflexion L toes 06/22/17 18:11 Objective: Vital Signs Temp Pulse Resp BP Pulse Ox 36.9 C 73 20 111/58 L 95 06/22/17 11:56 06/22/17 15:17 06/22/17 15:17 06/22/17 15:17 06/22/17 15:17 Laboratory Results 06/21/17 04:48 06/22/17 04:28 06/21/17 06/22/17 06/23/17 05:59 05:59 05:59 Intake Total 2575 500 Output Total 9649 575 Balance 1050 -75 ICD10 Worksheet Patient Problems: Problems Problem Status Onset Tibia/fibula fracture Acute
--- NOTE | 2017-06-29 12:20 | GOP ---
[f rep st] OPERATIVE REPORT DATE OF OPERATION: 06/19/2017 SURGEON: Ayden Powell MD PREOPERATIVE DIAGNOSIS: Left foot ischemia. POSTOPERATIVE DIAGNOSIS: Compartment syndrome. PROCEDURE PERFORMED: Critical care and transportation of patient to CT angiography followed by 4-com partment fasciotomy of the left leg. FINDINGS: Patient was found to have no discontinuity of the vasculature, but compartment syndrome wi th hinduism of his pulses after the fasciotomy. ESTIMATED BLOOD LOSS: Approximately 75 cc. DESCRIPTION OF PROCEDURE: Patient taken to the operating room where he was undergoing an orthopedic procedure for his tibial plateau fracture. He apparently lost his pulses which he had initially prio r to surgery. While the patient was asleep, we took him immediately down to CT angiography and shot a leg CTA which showed intact vessels down to the ankle. He was taken back to the operating room, pr epped and draped in usual sterile fashion. Bilateral lower leg incisions were made and they extended down through the fascia creating a 4-compartment fasciotomy anteriorly and posterolaterally. All 4 compartments were opened and entered. Muscle swelling bolused out of the wound after releasing the f ascia and anterior tibial and posterior tibial pulses were restored. The wounds were dressed with Be tadine gauze after obtaining hemostasis. They were also infiltrated with some 0.5% Marcaine. He rosario erated the procedure well. COMPLICATIONS: None. DISPOSITION: He was taken to recovery room in satisfactory condition.6 /[id number]/MODL
== END 2017-06-22 17:51 | disposition short-term general hospital (02) | DRG 493 ==
LOC: INTOOBSV 16:04 → F2N 20:34 → OBSVTOIN 06-20 13:36 → F3N 06-21 11:45
PROVIDERS: ADMIT Orthopaedic Surgery; ATTEND Surgery
PROC: 0QSJ35Z Reposition Right Fibula with External Fixation Device, Percutaneous Approach (ICD-10-PCS; principal; 2017-06-19 17:00)
PROC: 0QSH3BZ Reposition Left Tibia with Monoplanar External Fixation Device, Percutaneous Approach (ICD-10-PCS; principal; 2017-06-19 17:00)
PROC: B41G1ZZ Fluoroscopy of Left Lower Extremity Arteries using Low Osmolar Contrast (ICD-10-PCS; principal; 2017-06-19 17:00)
PROC: 0J8P0ZZ Division of Left Lower Leg Subcutaneous Tissue and Fascia, Open Approach (ICD-10-PCS; principal; 2017-06-19 17:00)
PROC: 3E0T3GC Introduction of Other Therapeutic Substance into Peripheral Nerves and Plexi, Percutaneous Approach (ICD-10-PCS; 2017-06-19 17:00)
PROC: 2W1RX6Z Compression of Left Lower Leg using Pressure Dressing (ICD-10-PCS; 2017-06-20)
DX: S82.142A Displaced bicondylar fracture of left tibia, initial encounter for closed fracture (principal); S82.832A Other fracture of upper and lower end of left fibula, initial encounter for closed fracture; V00.321A Fall from snow-skis, initial encounter; Y93.23 Activity, snow (alpine) (downhill) skiing, snowboarding, sledding, tobogganing and snow tubing; Y92.39 Other specified sports and athletic area as the place of occurrence of the external cause; Y99.8 Other external cause status; T79.A22A Traumatic compartment syndrome of left lower extremity, initial encounter; D62 Acute posthemorrhagic anemia; F11.120 Opioid abuse with intoxication, uncomplicated; F13.10 Sedative, hypnotic or anxiolytic abuse, uncomplicated; F17.210 Nicotine dependence, cigarettes, uncomplicated
CPT/HCPCS: 96374; 97162-GP; 97166-GO; 97530-GP; J0690; J1100; J1170; J1644; J1650; J1885; J2250; J2370; J2704; J2710; J2720; J3010; Q9967